=== PATIENT | female | born 1965 | race Caucasian/White ===

== ENCOUNTER → 2020-01-15 | Outpatient (CLI) | payer OTHER ==
[~2020-01-15] MED LIST: ACET650S21 PO; ARIP10TA33 PO; BUPR-173 PO; DILT120C80 PO; DULO30CA2 PO; LOSA50TA14 PO; TIZA4TAB2 PO; TRAZ-175 PO
[2020-01-15 13:00] LABS: ANION GAP 6 mmol/L (5-15); CHLORIDE 105 mmol/L (98-107)
[2020-01-15 13:01] LABS: CALCIUM 9.4 mg/dL (8.5-10.1)
[2020-01-15 13:02] LABS: ALANINE AMINOTRANSFERASE 35 U/L (12-78); ALBUMIN 4.1 g/dL (3.4-5.0); ALKALINE PHOSPHATASE 125 U/L (45-117); BILIRUBIN,TOTAL 0.4 mg/dL (0.2-1.0); CREATININE 0.86 mg/dL (0.55-1.02); TOTAL PROTEIN 8.8 g/dL (6.4-8.2)
== END | disposition home or self-care (01) ==
LOC: STAR 10:37
PROVIDERS: ATTEND Orthopaedic Surgery Hand Surgery
DX: Z01.812 Encounter for preprocedural laboratory examination (principal); Z20.828 Contact with and (suspected) exposure to other viral communicable diseases; G56.01 Carpal tunnel syndrome, right upper limb
CPT/HCPCS: 36415; 80053; 87635

== ENCOUNTER 2020-01-20 06:50 | Day surgery (SDC) | payer OTHER ==
[~2020-01-20] VITALS: Ht 160 cm; Wt 61.3 kg
[~2020-01-20 06:50] MED LIST changes: +BUPIVACAINE/PF 0.5% ONE
[2020-01-20] MEDS ORDERED: CHLORHEXIDINE 15 ML UDC MM STA (07:03)
[2020-01-20] MEDS ORDERED: LACTATED RINGERS 1,000 ML IV ONE (07:03)
[2020-01-20 07:22] VITALS: BP 127/83
[2020-01-20] MEDS ORDERED: ACETAMINOPHEN 325 MG TABLET PO PRN (08:00)
[2020-01-20] MEDS ORDERED: HYDROcodone/APAP 7.5-325MG/15ML UDC PO PRN (08:00)
[2020-01-20] MEDS ORDERED: DIAZEPAM 5 MG/ML, 2ML IVPush PRN (08:00)
[2020-01-20] MEDS ORDERED: DIPHENHYDRAMINE 50 MG/ML, 1ML IVPush PRN (08:00)
[2020-01-20] MEDS ORDERED: LORazepam 2 MG/ML, 1ML IVPush PRN (08:00)
[2020-01-20] MEDS ORDERED: METOCLOPRAMIDE 5 MG/ML, 2ML IVPush PRN (08:00)
[2020-01-20] MEDS ORDERED: EPHEDRINE 50 MG/ML, 1ML IVPush PRN (08:00)
[2020-01-20] MEDS ORDERED: ONDANSETRON 2MG/ML, 2ML IVPush PRN (08:00)
[2020-01-20] MEDS ORDERED: METHOCARBAMOL 1,000 MG in DEXTROSE 5% 100 ML IV PRN (08:00)
[2020-01-20] MEDS ORDERED: EPHEDRINE 50 MG/ML, 1ML IM PRN (08:00)
[2020-01-20] MEDS ORDERED: MIDAZOLAM 1 MG/ML, 2ML IV PRN (08:00)
[2020-01-20] MEDS ORDERED: HYDROmorphone 1 MG/ML, 1ML INJ IVPush PRN (08:00)
[2020-01-20] MEDS ORDERED: MEPERIDINE/PF 25MG/0.5ML IVPush PRN (08:00)
[2020-01-20] MEDS ORDERED: hydrALAzine 20 MG/ML, 1ML IV PRN (08:00)
[2020-01-20] MEDS ORDERED: HALOPERIDOL 5 MG/ML IV PRN (08:00)
[2020-01-20] MEDS ORDERED: FENTANYL PF 100 MCG/2ML IV PRN (08:00)
[2020-01-20] MEDS ORDERED: OXYcodone 5 MG/5 ML ORAL.SOL UDC PO PRN (08:00)
[2020-01-20] MEDS ORDERED: ALBUTEROL/IPRATROPIUM 2.5MG/0.5MG, 3 ML NPPB PRN (08:00)
[2020-01-20] MEDS ORDERED: LABETALOL 5MG/ML, 20ML IV PRN (08:00)
[2020-01-20] MEDS ORDERED: ROCURONIUM 10MG/ML,5ML ONE (08:17)
[2020-01-20] MEDS ORDERED: GLYCOPYRROLATE 0.2MG/1ML, 5ML ONE (08:17)
[2020-01-20] MEDS ORDERED: LIDOCAINE-MPF 2% ,5ML ONE (08:17)
[2020-01-20] MEDS ORDERED: MIDAZOLAM 1 MG/ML, 5ML ONE (08:17)
[2020-01-20] MEDS ORDERED: DEXAMETHASONE 4 MG/ML, 1ML ONE (08:17)
[2020-01-20] MEDS ORDERED: PROPOFOL 10 MG/ML, 20ML ONE (08:17)
[2020-01-20] MEDS ORDERED: FENTANYL PF 250 MCG/5ML ONE (08:18)
[2020-01-20] MEDS ORDERED: MAGNESIUM SULFATE 1 GM/2 ML ONE (09:00)
[2020-01-20] MEDS ORDERED: LABETALOL 5MG/ML, 20ML ONE (09:01)
[2020-01-20] MEDS ORDERED: LIDOCAINE/PF 1%, 30ML ONE (09:01)
[2020-01-20] MEDS ORDERED: cloniDINE/PF 100 MCG/ML, 10 ML ONE (09:01)
== END 2020-01-20 13:50 | disposition home or self-care (01) ==
LOC: OUT 06:50
PROVIDERS: ATTEND Orthopaedic Surgery Hand Surgery
DX: M19.131 Post-traumatic osteoarthritis, right wrist (principal); G56.01 Carpal tunnel syndrome, right upper limb; G56.80 Other specified mononeuropathies of unspecified upper limb; I10 Essential (primary) hypertension; M32.9 Systemic lupus erythematosus, unspecified; Z79.899 Other long term (current) drug therapy; Z88.0 Allergy status to penicillin; Z88.2 Allergy status to sulfonamides
CPT/HCPCS: 25825; 64721; 73100; C1713; C1762; C1776; J0735; J1100; J2250; J2704; J3010; J3475; J7120; 76000